=== PATIENT | male | born 1995 | race African-American/Black ===

== ENCOUNTER 2022-01-10 23:48 | Emergency (ER) | payer OTHER ==
[2022-01-11] MEDS ORDERED: AMOX/CLAV 875 MG/125 MG TABLET PO STA (00:44)
--- NOTE | 2022-01-11 00:48 | ED Physician Documentation ---
PD HPI URI - Stated complaint Stated Complaint: SOA - Chief complaint Chief Complaint: Resp - History obtained from History obtained from: Patient - Additional information Additional information: Patient presenting for evaluation of nasal congestion and sinus pressure for 1 month. He has been using Afrin daily for the last 2 weeks and feels that his congestion is getting worse. He has also started coughing at night and feels this is a dry cough. Also developed a sore throat yesterday. Has been having trouble sleeping due to his cough. He does have a history of asthma and has been using his inhaler more often.Denies fevers. Has not taken a COVID test.Denies chest pain or difficulty breathing.No known sick contacts. Review of Systems Constitutional: denies: Fever Nose: reports: Congestion Throat: reports: Sore throat Cardiac: denies: Chest pain / pressure Respiratory: reports: Cough. denies: Dyspnea GI: denies: Abdominal Pain, Vomiting Musculoskeletal: denies: Back pain Neurologic: denies: Headache PD PAST MEDICAL HISTORY - Present Medications Home Medications: Ambulatory Orders Medication Instructions Recorded Confirmed Amox/Clav 875/125 [Augmentin] 1 each PO Q12H #14 tablet 01/11/22 - Allergies Allergies/Adverse Reactions: Allergies Allergy/AdvReac Type Severity Reaction Status Date / Time juniper tar Allergy Hives Verified 01/10/22 23:58 PD ED PE NORMAL - General General: Alert and oriented X 3, No acute distress, Well developed/nourished - HEENT HEENT: Atraumatic, PERRL, EOMI, Ears normal, Moist mucous membranes, Pharynx benign (No abscess, lesions or exudate), Other (Tenderness to right maxillary sinus with no overlying erythema or swelling) - Neck Neck: Supple, no meningeal sign - Cardiac Cardiac: RRR, No murmur, Strong equal pulses - Respiratory Respiratory: No respiratory distress, Clear bilaterally - Derm Derm: Warm and dry - Extremities Extremities: No edema PD ED PE EXPANDED - Eyes Eyes: Subconj hemorrhage (Right eye, medially) Results - Vitals Vitals: Vital Signs - 24 hr 01/10/22 01/11/22 23:54 01:05 Temperature 36.2 C L Heart Rate 95 87 Respiratory 18 18 Rate Blood Pressure 153/95 H 146/95 H O2 Saturation 97 98 Oxygen O2 Source Room air - Labs Labs: Laboratory Tests 01/11/22 01/11/22 00:20 00:20 Nasal Adenovirus (PCR) NOT DETECTED Nasal B. parapertussis DNA (PCR) NOT DETECTED Nasal Coronavir 229E PCR NOT DETECTED Nasal Coronavir HKU1 PCR NOT DETECTED Nasal Coronavir NL63 PCR NOT DETECTED Nasal Coronavir OC43 PCR NOT DETECTED Nasal Enterovir/Rhinovir PCR DETECTED A Nasal Influenza B PCR NOT DETECTED Nasal Influenza A PCR NOT DETECTED Nasal Parainfluen 1 PCR NOT DETECTED Nasal Parainfluen 2 PCR NOT DETECTED Nasal Parainfluen 3 PCR NOT DETECTED Nasal Parainfluen 4 PCR NOT DETECTED Nasal RSV (PCR) NOT DETECTED Nasal B.pertussis DNA PCR NOT DETECTED Nasal C.pneumoniae (PCR) NOT DETECTED Rob Human Metapneumo PCR NOT DETECTED Nasal M.pneumoniae (PCR) NOT DETECTED Nasal SARS-CoV-2 (PCR) NOT DETECTED Group A Strep Rapid Negative PD MEDICAL DECISION MAKING - ED course Complexity details: re-evaluated patient, d/w patient, d/w family ED course: Patient with nasal congestion, sinus tenderness for 1 month and also recently with nonproductive cough and sore throat. Vital signs are stable. Overall he is well-appearing with reassuring lung exam. No signs of oral abscess or swelling. Strep test is negative. COVID test is pending. Given sinus symptoms ongoing for 1 month will initiate antibiotic treatment. He is advised on strict return precautions. I also encouraged to stop use of Afrin. Departure - Departure Disposition: 01 Home, Self Care Clinical Impression: Sinusitis Qualifiers: Sinusitis location: maxillary Chronicity: acute Recurrence: non-recurrent Qualified Code(s): J01.00 - Acute maxillary sinusitis, unspecified Condition: Stable Instructions: ED Sinusitis Abx Tx Prescriptions: Amox/Clav 875/125 [Augmentin] 1 each PO Q12H #14 tablet Comments: Your symptoms suggest a sinus infection. Given the duration, it is appropriate to start you on antibiotics. I have sent a prescription for Augmentin to [facility] in [place]. I would also recommend stopping Afrin as this may cause a rebound congestion if used too often or for too long of a time. I would recommend using a saline nasal spray to help clear any nasal congestion. You have a Covid test pending. You need to self quarantine until the result is done and negative. Do not leave your house. Do not get near anybody. The results should be done in 48 to 72 hours. We will call with a positive result, the fastest way to get a negative result for confirmation though is to go to the hospital website at [email or web address], click on the my [facility] tab and sign up for the patient portal. If any friends or family get sick and would like to have a Covid test done, but do not have signs or symptoms that would necessitate being hospitalized, there are multiple local options for Covid testing. [facility] keeps an updated list of testing and vaccination options at: [email or web address]. Forms: Activity restrictions Discharge Date/Time: 01/11/22 01:11
[2022-01-11 00:50] LABS: RAPID STREP SCREEN Negative (Negative)
[2022-01-11 01:05] VITALS: BP 146/95
[2022-01-11 01:33] LABS: B. PARAPERTUSSIS- RESP PCR PAN NOT DETECTED; B. PERTUSSIS- RESP PCR PANEL NOT DETECTED; C. PNEUMONIAE- RESP PCR PANEL NOT DETECTED; CORONAVIRUS 229E-RESP PCR NOT DETECTED; CORONAVIRUS HKU1-RESP PCR NOT DETECTED; CORONAVIRUS NL63-RESP PCR NOT DETECTED; CORONAVIRUS OC43-RESP PCR NOT DETECTED; HUMAN METAPNEUMOVIRUS NOT DETECTED; INFLUENZA A- RESP PCR PANEL NOT DETECTED; INFLUENZA B - RESP PCR PANEL NOT DETECTED; M. PNEUMONIAE- RESP PCR PANEL NOT DETECTED; PARAINFLUENZA VIRUS 1 NOT DETECTED; PARAINFLUENZA VIRUS 2 NOT DETECTED; PARAINFLUENZA VIRUS 3 NOT DETECTED; PARAINFLUENZA VIRUS 4 NOT DETECTED; RHINOVIRUS/ENTEROVIRUS DETECTED; RSV- RESP PCR PANEL NOT DETECTED; SARS-CoV-2 -RESP PCR PANEL NOT DETECTED
== END 2022-01-11 01:11 | disposition home or self-care (01) ==
LOC: ED 23:48
DX: J01.00 Acute maxillary sinusitis, unspecified (principal); Z20.822 Contact with and (suspected) exposure to COVID-19
CPT/HCPCS: 87070; 87430; 87633; 99282; 99283; A9270

== ENCOUNTER 2023-09-05 00:48 | Emergency (ER) | payer MEDICAID ==
[2023-09-05 01:01] VITALS: BP 164/100; O2SAT 100
--- NOTE | 2023-09-05 01:15 | ED Physician Documentation ---
History of Present Illness - Stated complaint Stated Complaint: HEADACHE - Chief complaint Chief Complaint: Neuro - History obtained from History obtained from: Patient - Additonal information Additional information: 28yM previously healthy p/w L upper facial rash X 4 days with associated severe burning L sided headache. he has lesions to L eyelid but denies vision changes or ear pain. patient states the rash has started crusting and itching in spots. PD PAST MEDICAL HISTORY - Past Medical History Respiratory: Asthma - Past Surgical History Past Surgical History: No - Present Medications Home Medications: Ambulatory Orders Medication Instructions Recorded Confirmed Albuterol 2.5 mg INH Q4H PRN #30 ml 01/27/23 Albuterol Oral Soln [Ventolin] 2 mg IH Q4HR PRN 01/27/23 01/27/23 Albuterol Sulf [Ventolin Hfa 1 - 2 puffs INH Q4HR PRN #1 each 01/27/23 Inhaler] Albuterol Sulfate [Proventil Hfa] 2 puffs IH Q4HR PRN 01/27/23 01/27/23 Cetirizine [ZyrTEC] 10 mg PO DAILY 01/27/23 01/27/23 predniSONE [Deltasone] 60 mg PO DAILY 4 Days #12 tablet 01/27/23 Valacyclovir HCl [Valtrex] 1,000 mg PO TID 7 Days #21 tablet 09/05/23 - Allergies Allergies/Adverse Reactions: Allergies Allergy/AdvReac Type Severity Reaction Status Date / Time juniper tar Allergy Hives Verified 09/05/23 01:01 - Social History Does the pt smoke?: No Smoking Status: Never smoker Does the pt drink ETOH?: No Does the pt have substance abuse?: No - Immunizations Immunizations are current?: Yes - POLST Patient has POLST: No PD ED PE NORMAL - Vitals Vital signs reviewed: Yes - General General: Alert and oriented X 3, No acute distress, Well developed/nourished - HEENT HEENT: Atraumatic, PERRL, EOMI, Ears normal, Moist mucous membranes, Pharynx benign, Other (fluorescein exam of the left eye was normal without dendritic figures. TM clear on left) - Neck Neck: Supple, no meningeal sign - Derm Derm: Normal color, Warm and dry, Other (discrete pustular appearing rash to L upper face and forehead/scalp with some areas of crusting) Results - Vitals Vitals: Vital Signs - 24 hr 09/05/23 00:55 Temperature 36.9 C Heart Rate 65 Respiratory 16 Rate Blood Pressure 164/100 H O2 Saturation 100 Oxygen O2 Source Room air PD Medical Decision Making - ED course ED course: 28yM p/w L upper facial rash c/w shingles X 4 days. patient has involvement on L eyelid but denies vision changes and has normal fluorescein exam. TM clear on exam as well. first dose of antiviral provided as well as IM toradol for pain control with improvement. return precautions given. provided ophtho information for follow up as a precaution. Departure - Departure Clinical Impression: Shingles Condition: Stable Instructions: ED Shingles Follow-Up: Reagan Walker MD [Provider Admit Priv/Credential] - Prescriptions: Valacyclovir HCl [Valtrex] 1,000 mg PO TID 7 Days #21 tablet Comments: Antiviral medicine sent to [facility] in [place]. You were seen in the emergency department for shingles. Please follow-up with ophthalmology outpatient as needed and return to the emergency department if you have any new or worsening symptoms or other concerns. Forms: PCP List, Activity restrictions
[2023-09-05] MEDS: valACYclovir 500 MG TABLET PO STA (01:19)
[2023-09-05] MEDS: KETOROLAC 30 MG/ML VIAL IM STA (01:19)
== END 2023-09-05 01:33 | disposition home or self-care (01) ==
LOC: ED 00:48
DX: B02.9 Zoster without complications (principal)
CPT/HCPCS: 96372; 99284; A9270

== ENCOUNTER 2024-01-02 12:52 | Outpatient (CLI) | payer MEDICAID | END 2024-01-02 12:53 | disposition home or self-care (01) | LOC: LAB.R 12:52 | PROVIDERS: ATTEND Nurse Practitioner | DX: S61.202A Unspecified open wound of right middle finger without damage to nail, initial encounter (principal) | CPT/HCPCS: 87070; 87205 ==